=== PATIENT | male | born 1980 | race Caucasian/White ===

== ENCOUNTER 2018-01-12 18:17 | Emergency (ER) | payer OTHER, SELFPAY ==
[2018-01-12] MEDS ORDERED: Ketorolac Tromethamine 30 MG/ML VIAL ONE (18:38)
[2018-01-12 18:43] LABS: #Basophils 0.1 thou/uL (0.0-0.2); #Eosinphils 0.2 thou/uL (0.0-0.7); #Lymphocytes 3.4 thou/uL (1.20-3.40); #Monocytes 0.4 thou/uL (0.11-0.59); #Neutrophils 5.1 thou/uL (1.40-6.50); %Basophils 1.3 % (0.0-1.0); %Monocytes 4.3 % (0.0-10.0); %Neutrophils 55.4 % (42.0-75.0); Hemoglobin 15.1 g/dL (14.0-18.0); Mean Corpuscular HGB CONC 36.4 g/dL (32.0-36.0); Mean Corpuscular Volume 90.5 fl (80.0-94.0); Platelet Count 281 thou/uL (130-400); RBC Distribution Width 12.2 % (11.5-14.5); Red Blood Cell (RBC) Count 4.59 mill/uL (4.70-6.10); White Blood Cell (WBC) Count 9.2 thou/uL (4.8-10.8)
[2018-01-12 19:01] LABS: ALT (SGPT) 25 U/L (8-55); AST (SGOT) 24 U/L (5-34); Albumin 4.4 g/dL (3.5-5.0); Alkaline Phosphatase 63 U/L (40-150); Anion Gap 13 mmol/L (10-20); BUN (Urea Nitrogen) 8 mg/dL (8.9-20.6); Bilirubin, Total 0.4 mg/dL (0.2-1.2); Calc. Creatinine Clearance 0 mL/min (70-130); Calcium 9.2 mg/dL (7.8-10.44); Carbon Dioxide 27 mmol/L (22-29); Chloride 103 mmol/L (98-107); Estimated GFR-MDRD Greater than 90; Globulin 2.5 g/dL (2.4-3.5); Glucose 110 mg/dL (70-105); Lipase 29 U/L (8-78); Potassium 3.7 mmol/L (3.5-5.1); Protein, Total 6.9 g/dL (6.0-8.3); Sodium 139 mmol/L (136-145)
[2018-01-12 19:02] LABS: CKMB 1.8 ng/mL (0-6.6); Troponin I 0.014 ng/mL (< 0.028)
--- NOTE | 2018-01-12 21:22 | RAD ---
PORTABLE CHEST 01/12/18 An AP portable film at 1832 shows a normal sized heart and clear lungs. No infiltrate or effusion was seen. The trachea is midline. There is no vascular congestion or edema. IMPRESSION: No acute thoracic finding. POS: HOME
== END 2018-01-12 19:32 | disposition home or self-care (01) ==
LOC: BURERS 18:17
DX: R07.89 Other chest pain (principal); F17.210 Nicotine dependence, cigarettes, uncomplicated
CPT/HCPCS: 71045; 80053; 82553; 83690; 84484; 85025; 93005; 96374; J1885

== ENCOUNTER 2018-10-20 11:30 | Emergency (ER) | payer SELFPAY ==
[2018-10-20] MEDS ORDERED: Lidocaine 2% PF 5 ML VIAL ONE (11:37)
[2018-10-20] MEDS ORDERED: HYDROcodone/Acetaminophen 10/325 mg Tablet ONE (12:13)
[2018-10-20] MEDS ORDERED: Lidocaine 1% PF 5 ML VIAL ONE (12:19)
[2018-10-20] MEDS ORDERED: Bacitracin Zinc 1 Packet ONE (12:43)
[2018-10-20] MEDS ORDERED: Cephalexin 500 MG CAP ONE (12:55)
--- NOTE | 2018-10-20 16:38 | RAD ---
RIGHT THUMB 3 VIEWS: Date: 10/20/18 A soft tissue defect is seen at the distal end of the thumb involving the nail. No opaque foreign bod y or underlying fracture evident. The joints appear normal. IMPRESSION: Soft tissue injury. POS: HOME
== END 2018-10-20 12:58 | disposition home or self-care (01) ==
LOC: BURERS 11:30
DX: S61.111A Laceration without foreign body of right thumb with damage to nail, initial encounter (principal); F17.210 Nicotine dependence, cigarettes, uncomplicated; W31.89XA Contact with other specified machinery, initial encounter; Y92.69 Other specified industrial and construction area as the place of occurrence of the external cause
CPT/HCPCS: 12002; J2001

== ENCOUNTER 2018-10-29 15:07 | Emergency (ER) | payer SELFPAY ==
[2018-10-29] MEDS ORDERED: Ibuprofen 800 MG TAB ONE (15:22)
[2018-10-29] MEDS ORDERED: HYDROcodone/Acetaminophen 10/325 mg Tablet ONE (15:22)
[2018-10-29] MEDS ORDERED: Clindamycin 150 MG CAP ONE (15:37)
--- NOTE | 2018-10-29 18:34 | RAD ---
RIGHT THUMB THREE VIEWS: 10/29/18 Comparison is made with the 10/20 study. No fracture or opaque foreign body was seen. There is no area of bony destruction to suggest osteomye litis at the time. The joint appears normal. IMPRESSION: No adverse change since 10/20. POS: HOME
== END 2018-10-29 16:00 | disposition home or self-care (01) ==
LOC: BURERS 15:07
DX: L03.011 Cellulitis of right finger (principal); F17.210 Nicotine dependence, cigarettes, uncomplicated; Z79.899 Other long term (current) drug therapy
CPT/HCPCS: 87070; 87205